=== PATIENT | female | born 2005 | race Caucasian/White ===

== ENCOUNTER 2024-05-04 15:57 | Emergency (ER) | payer OTHER, SELFPAY ==
[2024-05-04 15:59] VITALS: BP 149/104
--- NOTE | 2024-05-04 16:04 | ED.GENMED ---
ED Provider Triage
<DYLAN Lau - Last Filed: 05/04/24 16:17>
-
Patient seen by provider in Triage?: Seen in Triage
Attestation: A medical screening examination has been initiated by a qualified medical provider. Based on the assessment performed at this time, it has been determined that an emergent medical condition may exist and the patient has been informed
that further medical evaluation and possible additional diagnostic testing may be needed.
HPI:
19 yr old female presents with fever /body aches )since Wednesday as high as 103. STarted with RLQ pain last night and diarrhea. Pt has had 6 episodes between 12 pm and 3 pm and 6 episodes this am . Pt c/o of pain with jumping and walking up
the steps.
No UTI symptoms
GENERAL: Alert , in no apparent distress
EYE: No visual abnormalities.
NECK: Trachea midline
ENT: No visible abnormalities.
LUNGS: No acute respiratory distress
NEUROLOGICAL: Alert and oriented
SKIN: Skin intact. No visible changes.
MUSCULOSKELETAL: Moving extremities normally
PSYCH: Normal and appropriate interaction.
This is a medical evaluation conducted in person to initiate diagnostic evaluation and provide initial therapeutics. Please see further documentation by the treating clinician.
History of Present Illness
<DYLAN Lau - Last Filed: 05/04/24 16:17>
General
Chief Complaint: Abdominal Symptoms
Time Seen by Provider: 05/04/24 16:39
<Lisa Boggs MD - Last Filed: 05/04/24 19:56>
General
Source: patient
Exam Limitations: none
Nursing documentation reviewed up to this point in time: agreed with
History of Present Illness
History of Present Illness:
The patient is a 19-year-old female who reports 2 days of fevers and cold and frequent watery diarrhea. Patient also complains of right-sided abdominal pain. Patient was evaluated by her doctor and encouraged to go to the ED to rule out
appendicitis. Patient denies any past surgical history. She denies cough and sore throat. Patient reports she does not see any blood in her stool. No recent antibiotic use. No sick contacts or travel
Past History
<Lisa Boggs MD - Last Filed: 05/04/24 19:56>
Past History
ED Past Medical History: Asthma
ED Past Surgical History: None
Social History
Tobacco: Non-smoker
Alcohol: None
Drug: None
Personal: Single
Living: with family
Employment: Other
Family History
Family History: Other
Review of Systems
<Lisa Boggs MD - Last Filed: 05/04/24 19:56>
Review of Systems
Allergies reviewed?: Yes
All Other Systems: ROS reviewed and negative except as documented in HPI and ROS
Constitutional: Reports fever, fatigue and chills
EENT: Reports no symptoms
Respiratory: Reports no symptoms
Cardiac: Reports no symptoms
ABD/GI: Reports abdominal pain and diarrhea; Denies nausea or vomiting
: Reports no symptoms
Musculoskeletal: Reports no symptoms
Skin: Reports no symptoms
Neurological: Reports no symptoms
Endocrine: Reports no symptoms
Hematologic/Lymphatic: Reports no symptoms
Psychiatric: Reports no symptoms
Phy Exam
<Lisa Boggs MD - Last Filed: 05/04/24 19:56>
Physical Exam
Physical Exam:
Physical Exam
General: no apparent distress, slightly flushed but nontoxic
Neck: supple. no meningeal signs. normal psoterior pharynx
Heart: s1/s2 regular rate and rhythm, no murmur. equal radial pulses.
Lungs: no acute respiratory distress. clear bilaterally
Abdomen: Normal bowel sounds. Nondistended. Mild right upper and mid abdominal tenderness without rebound or guarding. No pulsatile mass
Neuro: alert and oriented. no focal neurological deficits
Skin: no rash
Psychiatric: well kept. interactive and cooperative
Extremities: no edema. no calf tenderness. negative homans. good distal pulses
Course
<DYLAN Lau - Last Filed: 05/04/24 16:17>
Orders/Labs/Results
Orders:
Orders
05/04/24 16:03
Test Result ONCE
05/04/24 16:06
Complete Blood Count/With Diff Urgent
Comprehensive Metabolic Panel Urgent
HCG, Serum Qualitative Screen Urgent
Lipase Urgent
05/04/24 16:16
CT Abd/pelvis W Iv Cont Urgent
Comment:
Reason For Exam: rlq pain
05/04/24 17:03
0.9% Sodium Chloride 1000 ml [Nss] 1,000 ml IV BOLUS
Acetaminophen [Tylenol] 1,000 mg PO NOW STA
Ketorolac [Toradol] 30 mg IV NOW STA
05/04/24 18:03
STOOL [C difficile Antigen & Toxins] Urgent
DORY Source: Feces/Stool
Specimen Description:
Date Specimen was Collected: 05/04/24
Time Specimen was Collected: 17:59
Stool Culture Urgent
DORY Source: Feces/Stool
Specimen Description:
Date Specimen was Collected: 05/04/24
Time Specimen was Collected: 17:59
05/04/24 19:31
Urinalysis Reflex To Culture Urgent
Date Specimen was Collected: 05/04/24
Time Specimen was Collected: 17:10
Urine Microscopic Reflex Cult Urgent
Abnormal Lab Results
05/04/24 05/04/24
16:06 19:31
MPV 11.0 H fL
(7.4-10.4)
Neutrophils % 79.5 H %
(42.2-75.2)
Lymphocytes % 14.8 L %
(20.5-51.1)
Urine Ketones 3+ A
(Negative)
Ur Occult Blood Reflex 4+ A
(Negative)
05/04/24 16:06
05/04/24 16:06
Vital Signs
Initial and Last Documented VS:
Initial Vital Signs
Temp Pulse Resp BP Pulse Ox
99.4 F 124 18 149/104 98
05/04/24 15:59 05/04/24 15:59 05/04/24 15:59 05/04/24 15:59 05/04/24 15:59
Last Documented Vital Signs
Temp Pulse Resp BP Pulse Ox
99.4 F 104 16 139/80 100
05/04/24 15:59 05/04/24 17:14 05/04/24 16:45 05/04/24 17:10 05/04/24 17:11
<Lisa Boggs MD - Last Filed: 05/04/24 19:56>
Orders/Labs/Results
Orders:
Orders
05/04/24 16:03
Test Result ONCE
05/04/24 16:06
Complete Blood Count/With Diff Urgent
Comprehensive Metabolic Panel Urgent
HCG, Serum Qualitative Screen Urgent
Lipase Urgent
05/04/24 16:16
CT Abd/pelvis W Iv Cont Urgent
Comment:
Reason For Exam: rlq pain
05/04/24 17:03
0.9% Sodium Chloride 1000 ml [Nss] 1,000 ml IV BOLUS
Acetaminophen [Tylenol] 1,000 mg PO NOW STA
Ketorolac [Toradol] 30 mg IV NOW STA
05/04/24 18:03
STOOL [C difficile Antigen & Toxins] Urgent
DORY Source: Feces/Stool
Specimen Description:
Date Specimen was Collected: 05/04/24
Time Specimen was Collected: 17:59
Stool Culture Urgent
DORY Source: Feces/Stool
Specimen Description:
Date Specimen was Collected: 05/04/24
Time Specimen was Collected: 17:59
05/04/24 19:31
Urinalysis Reflex To Culture Urgent
Date Specimen was Collected: 05/04/24
Time Specimen was Collected: 17:10
Urine Microscopic Reflex Cult Urgent
Abnormal Lab Results
05/04/24 05/04/24
16:06 19:31
MPV 11.0 H fL
(7.4-10.4)
Neutrophils % 79.5 H %
(42.2-75.2)
Lymphocytes % 14.8 L %
(20.5-51.1)
Urine Ketones 3+ A
(Negative)
Ur Occult Blood Reflex 4+ A
(Negative)
05/04/24 16:06
05/04/24 16:06
Vital Signs
Initial and Last Documented VS:
Initial Vital Signs
Temp Pulse Resp BP Pulse Ox
99.4 F 124 18 149/104 98
05/04/24 15:59 05/04/24 15:59 05/04/24 15:59 05/04/24 15:59 05/04/24 15:59
Last Documented Vital Signs
Temp Pulse Resp BP Pulse Ox
99.4 F 104 16 139/80 100
05/04/24 15:59 05/04/24 17:14 05/04/24 16:45 05/04/24 17:10 05/04/24 17:11
<Lisa Boggs MD - Last Filed: 05/04/24 19:56>
MDM/Problems Addressed
Differential Diagnosis Includes:
Acute colitis, acute appendicitis, acute cholecystitis, viral illness
MDM/Problems Addressed:
Patient presents with acute abdominal pain and diarrhea
<Lisa Boggs MD - Last Filed: 05/04/24 19:56>
*Radiology
Radiology exam reviewed: radiology read reviewed
*Pulse Oximetry
Patient hypoxic: no
*EKG
Interpreted by ED Provider?: NA
*Critical Care Note
Total Time (30-74mins, 75-104mins- exclusive of procedures): Not Applicable
<Lisa Boggs MD - Last Filed: 05/04/24 19:56>
Update Note
Update Note:
Patient feels so much better with Toradol and Tylenol. CAT scan shows no intra-abdominal infection or surgical issue. Patient likely has viral enteritis and will be encouraged to drink lots of fluids, and take Tylenol.
ED Attending Note
<DYLAN Lau - Last Filed: 05/04/24 16:17>
-
Portions of this chart may have been created with voice recognition software.� Occasional wrong word or��sound alike� substitutions may have occurred due to the inherent limitations of voice recognition software.
Discharge Plan
Departure
Patient Disposition: Home (Routine Discharge)
Date of Disposition: 05/04/24
Time of Disposition: 19:50
Patient with high blood pressure during this ER visit?: Yes
Condition: Good
Covid-19: Not Applicable
Discharge Problem:
Abdominal pain, acute, Acute diarrhea
Instructions: Diarrhea in teens and adults, [place] Diet, Abdominal Pain, BLOOD PRESSURE
Prescriptions:
New
ketorolac 10 mg tablet
10 mg PO TID PRN (Reason: Pain) Qty: 7 0RF
Rx Instructions:
maximum total duration of 5 days from all oral, intranasal, or parenteral formulations
No Action
ondansetron 4 MG tablet,disintegrating
4 mg PO TIDPRN PRN (Reason: nausea) Qty: 12 0RF
Referrals:
Jason Santamaria, DO [Family Provider] -
Activity Restrictions/Additional Instructions:
Take 1000 mg of Tylenol every 4-6 hours for fever and pain. In addition to Tylenol, you can also take the Toradol every 8 hours as needed for pain. Please do not combine the Toradol with any other NSAID such as Motrin, ibuprofen, Aleve or Advil
Please follow with your primary care doctor in 2 days if you are still not feeling better
Please continue to drink lots of fluids to keep yourself hydrated
Interventions
Interventions:
*Risk Screen - Suicide Last Done: 05/04/24 15:59
*General Assessment Last Done: 05/04/24 15:59
*Neglect/Abuse Screening Last Done: 05/04/24 16:41
*ED COVID-19 Vaccine History Last Done: 05/04/24 15:59
NT-Ryvdal-Nnmebjmfxh Assessment Last Done: 05/04/24 16:45
Discharge Date and Time
Print Language: [place]
[2024-05-04 16:12] LABS: % Basophils 0.4 % (0-2); % Eosinophils 0.1 % (0-6); % Immature Granulocytes 0.1 % (0-0.5); % Lymphocytes 14.8 % (20.5-51.1); % Monocytes 5.1 % (1.7-9.3); % Neutrophils 79.5 % (42.2-75.2); Absolute Lymphocytes 1.2 10^3/uL (1.2-3.4); Absolute Monocytes 0.4 10^3/uL (0.1-0.6); Absolute Neutrophils 6.3 10^3/uL (1.4-6.5); Hematocrit 40.1 % (37.0-47.0); Hemoglobin 13.4 g/dL (12.0-16.0); Mean Corp Hgb Conc. 33.4 g/dL (33.0-37.0); Mean Corpuscular Hgb 27.6 pg (27.0-31.0); Mean Corpuscular Volume 82.7 fL (81.0-99.0); Nucleated Red Blood Cells % 0 %; Platelet Count 260 10^3/uL (130-400); Red Blood Cell Count 4.85 10^6/uL (4.20-5.40); Red Cell Dist. Width 13.4 % (11.5-14.5); White Blood Cell Count 7.9 10^3/uL (4.8-10.8)
[2024-05-04 16:15] VITALS: BMI 27.1
[2024-05-04 16:31] LABS: HCG, Serum Qualitative Screen Negative
[2024-05-04 16:35] LABS: ALT (SGPT) 20 U/L (0-35); AST (SGOT) 29 U/L (14-36); Albumin 4.6 g/dl (3.5-5.0); Alkaline Phosphatase 74 U/L (38-126); Blood Urea Nitrogen 8 mg/dl (7-17); Calcium 9.7 mg/dl (8.4-10.2); Carbon Dioxide 22 mmol/L (22-30); Chloride 104 mmol/L (98-107); Estimated Creatinine Clearance 123 ml/min; Glucose 98 mg/dl (70-99); Lipase 73 U/L (23-300); Potassium 3.9 mmol/L (3.5-5.1); Sodium 139 mmol/L (135-145); Total Bilirubin 0.4 mg/dl (0.2-1.3); Total Protein 7.3 g/dl (6.3-8.2); eGFR > 60.00
[2024-05-04 16:41] VITALS: BMI 27.2
[2024-05-04] MEDS: TORADOL 30 MG IV (17:06)
[2024-05-04] MEDS: TYLENOL 1000 MG PO (17:06)
[2024-05-04] MEDS: NSS 1000 IV (17:08)
[2024-05-04 17:10] VITALS: BP 139/80
[2024-05-04 19:34] VITALS: BP 123/69
[2024-05-04 19:45] LABS: Urine Albumin Trace (Neg - Trace); Urine Bilirubin Negative (Negative); Urine Character Clear (Clear); Urine Color Yellow; Urine Glucose Negative (Negative); Urine Ketone 3+ (Negative); Urine Leukocyte Negative (Negative); Urine Nitrite Negative (Negative); Urine Occult Blood 4+ (Negative); Urine Urobilinogen Negative (Neg - 1+)
[2024-05-04 19:56] LABS: Urine Bacteria Few (Negative); Urine White Cell 0-2 /HPF (0-5)
[2024-05-04 20:13] VITALS: BP 125/75
== END 2024-05-04 20:36 | disposition home or self-care (01) ==
LOC: EMR 15:57
PROVIDERS: Nurse Practitioner; EMERGENCY PHYSICIAN Emergency Medicine; FAMILY PHYSICIAN Pediatrics
DX: R10.31 Right lower quadrant pain (principal); R19.7 Diarrhea, unspecified; J45.909 Unspecified asthma, uncomplicated
CPT/HCPCS: 99284; 96374; 96361; 74177; 80053; 81003; 81015; 83690; 84703; 85025; 87045; 87046; 87077; 87184; 87186; 87324; 87427; 87449; Q9967

== ENCOUNTER 2024-05-06 11:39 | Emergency (ER) | payer OTHER, SELFPAY ==
[2024-05-06 11:41] VITALS: BP 148/90
[2024-05-06 12:38] VITALS: BP 135/82
[2024-05-06 13:00] VITALS: BP 150/94
--- NOTE | 2024-05-06 13:36 | ED.GENMED ---
Addendum entered and electronically signed by DYLAN Lau 05/08/24 08:13:
Patient stool culture came back positive for Salmonella. Patient was seen here on May 06 and discharged on Cipro and Bactrim. Patient is susceptible to Bactrim on Salmonella culture results. Will have patient stop Cipro. I spoke with
patient and mother home who reports they did call the ER yesterday and stopped Cipro after the results were back. She is feeling better though she has still some diarrhea and cramping fever has resolved. Discussed close outpatient follow-up with
family doctor.
Will give patient additional note to return in 48 hours unless worsening of symptoms.
Original Note:
History of Present Illness
General
Chief Complaint: Abdominal Symptoms
Time Seen by Provider: 05/06/24 12:36
History of Present Illness
History of Present Illness:
Patient is a 19-year-old female who is otherwise healthy presents to the emergency department with persistent nausea vomiting diarrhea and fever. She was seen in the emergency department 2 days ago diagnosed with likely gastroenteritis. She had a
negative CT scan done at that. Stool studies were negative for C. difficile, are still pending other stool cultures. She reports persistent symptoms. Denies focal abdominal pain. Endorses small amount of blood in her diarrhea. Patient denies
recent travel. Patient denies animal exposure. 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
Past History
Past History
ED Past Medical History: Asthma
ED Past Surgical History: None
Social History
Tobacco: Non-smoker
Alcohol: None
Drug: None
Personal: Single
Living: with family
Employment: Other
Family History
Family History: Other
Phy Exam
Physical Exam
Physical Exam:
GENERAL APPEARANCE: NAD, well developed/ well nourished
EYES lids/conjunctiva normal
EARS/NOSE/THROAT Mucous membranes moist, uvula midline without oral pharyngeal erythema, exudate or swelling
HEAD/NECK normocephalic atraumatic, neck is supple.
RESPIRATORY respiratory effort normal, speaks in full sentences, no accessory muscle use. Lungs clear to auscultation without rhonchi, wheezes, rales
CARDIAC Regular rate and rhythm, no edema.
ABDOMINAL soft, no distention. Mildly tender diffusely. No peritoneal signs
MUSCLES/EXTREMITIES No abnormal range of motion, no swelling.
SKIN Warm, pink and dry. No rashes
NEUROLOGICAL Speech is clear and appropriate. Normal level of consciousness. 5/5 strength in all extremities.
PSYCH Normal mood and affect. Judgement/competence is appropriate
Course
Orders/Labs/Results
Orders:
Orders
05/06/24 13:32
0.9% Sodium Chloride 1000 ml [Nss] 1,000 ml IV BOLUS
Ketorolac [Toradol] 15 mg IV NOW STA
Ondansetron Injectable [Zofran] 4 mg IV NOW STA
Test Result ONCE
05/06/24 14:01
Complete Blood Count/With Diff Urgent
05/06/24 14:02
CRP [C-Reactive Protein] Urgent
Comprehensive Metabolic Panel Urgent
HCG, Serum Qualitative Screen Urgent
Blood Culture Routine
DORY Source: Blood/Venous
Specimen Description:
Blood Culture Urgent
DORY Source: Blood/Venous
Specimen Description:
05/06/24 14:52
Ova & Parasites Giardia/Crypto AG [Giardia/Cryptosporidium Ag] Urgent
DORY Source: Feces/Stool
Specimen Description:
Date Specimen was Collected: 05/06/24
Time Specimen was Collected: 14:50
05/06/24 16:53
Ciprofloxacin HCl [Cipro] 500 mg PO ONCE ONE
Abnormal Lab Results
05/06/24 05/06/24
14:01 14:02
WBC 4.4 L 10^3/uL
(4.8-10.8)
Hct 36.1 L %
(37.0-47.0)
MCV 80.4 L fL
(81.0-99.0)
MCH 26.9 L pg
(27.0-31.0)
MPV 10.7 H fL
(7.4-10.4)
Absolute Lymphs (auto) 0.8 L 10^3/uL
(1.2-3.4)
Lymphocytes % 18.9 L %
(20.5-51.1)
Carbon Dioxide 19 L mmol/L
(22-30)
C-Reactive Protein 58.90 H mg/L
(0.0-10.00)
05/06/24 14:01
05/06/24 14:02
Vital Signs
Initial and Last Documented VS:
Initial Vital Signs
Temp Pulse Resp BP Pulse Ox
99.2 F 109 18 148/90 100
05/06/24 11:41 05/06/24 11:41 05/06/24 11:41 05/06/24 11:41 05/06/24 11:41
Last Documented Vital Signs
Temp Pulse Resp BP Pulse Ox
99.2 F 109 18 143/78 98
05/06/24 11:41 05/06/24 11:41 05/06/24 11:41 05/06/24 14:00 05/06/24 16:30
*Critical Care Note
Total Time (30-74mins, 75-104mins- exclusive of procedures): Not Applicable
ED Attending Note
ED Attending Note
ED Attending Note:
Patient with persistent fevers with diarrhea. She is afebrile here and nontoxic-appearing she has a benign abdominal exam. Elevated inflammatory markers on lab work. Do not feel there is an indication for repeat CT scanning at this time. Stool
cultures are still pending. Given her fevers and severe symptoms, will start empiric antibiotics for infectious diarrhea. Considered admission, but patient tolerating PO, and is well appearing.
-
Portions of this chart may have been created with voice recognition software.� Occasional wrong word or��sound alike� substitutions may have occurred due to the inherent limitations of voice recognition software.
Discharge Plan
Departure
Patient Disposition: Home (Routine Discharge)
Date of Disposition: 05/06/24
Time of Disposition: 16:43
Patient with high blood pressure during this ER visit?: No
Discharge Problem:
Acute infectious diarrhea
Instructions: [place] Diet, Acute Diarrhea
Prescriptions:
New
ciprofloxacin HCl 500 mg tablet
500 mg PO BID Qty: 8 0RF
sulfamethoxazole-trimethoprim [Bactrim DS] 800-160 mg tablet
1 tab PO BID 10 Days Qty: 20 0RF
No Action
ondansetron 4 MG tablet,disintegrating
4 mg PO TIDPRN PRN (Reason: nausea) Qty: 12 0RF
ketorolac 10 mg tablet
10 mg PO TID PRN (Reason: Pain) Qty: 7 0RF
Rx Instructions:
maximum total duration of 5 days from all oral, intranasal, or parenteral formulations
Referrals:
Jason Santamaria, [Family Provider] -
Stand Alone Forms: Return to Work
Activity Restrictions/Additional Instructions:
Please follow up with your primary doctor for recheck in the next few days
return to ER if worse
Interventions
Interventions:
*Risk Screen - Suicide Last Done: 05/06/24 14:02
*General Assessment Last Done: 05/06/24 14:02
*Neglect/Abuse Screening Last Done: 05/06/24 14:02
ED- Fall Risk Assessment Last Done: 05/06/24 14:02
*ED COVID-19 Vaccine History Last Done: 05/06/24 14:02
*Nursing Disposition Last Done: 05/06/24 17:03
VX-Glxzhx-Qdekvrmsvd Assessment Last Done: 05/06/24 14:02
Discharge Date and Time
Discharge Date/Time: 05/06/24 17:20
Print Language: PALAU[place]
[2024-05-06 14:00] VITALS: BP 143/78
[2024-05-06 14:02] VITALS: BMI 27.3
[2024-05-06 14:13] LABS: % Basophils 0.7 % (0-2); % Eosinophils 0.2 % (0-6); % Immature Granulocytes 0.2 % (0-0.5); % Lymphocytes 18.9 % (20.5-51.1); % Monocytes 9.3 % (1.7-9.3); % Neutrophils 70.7 % (42.2-75.2); Absolute Lymphocytes 0.8 10^3/uL (1.2-3.4); Absolute Monocytes 0.4 10^3/uL (0.1-0.6); Absolute Neutrophils 3.1 10^3/uL (1.4-6.5); Hematocrit 36.1 % (37.0-47.0); Hemoglobin 12.1 g/dL (12.0-16.0); Mean Corp Hgb Conc. 33.5 g/dL (33.0-37.0); Mean Corpuscular Hgb 26.9 pg (27.0-31.0); Mean Corpuscular Volume 80.4 fL (81.0-99.0); Mean Platelet Volume 10.7 fL (7.4-10.4); Nucleated Red Blood Cells % 0 %; Platelet Count 237 10^3/uL (130-400); Red Blood Cell Count 4.49 10^6/uL (4.20-5.40); Red Cell Dist. Width 13.4 % (11.5-14.5); White Blood Cell Count 4.4 10^3/uL (4.8-10.8)
[2024-05-06 14:39] LABS: ALT (SGPT) 20 U/L (0-35); AST (SGOT) 27 U/L (14-36); Albumin 4.2 g/dl (3.5-5.0); Alkaline Phosphatase 65 U/L (38-126); Blood Urea Nitrogen 9 mg/dl (7-17); Calcium 9.1 mg/dl (8.4-10.2); Carbon Dioxide 19 mmol/L (22-30); Chloride 106 mmol/L (98-107); Estimated Creatinine Clearance 108 ml/min; Glucose 83 mg/dl (70-99); Potassium 4.1 mmol/L (3.5-5.1); Sodium 143 mmol/L (135-145); Total Bilirubin 0.3 mg/dl (0.2-1.3); Total Protein 6.9 g/dl (6.3-8.2); eGFR > 60.00
[2024-05-06 14:44] LABS: HCG, Serum Qualitative Screen Negative
[2024-05-06] MEDS: ZOFRAN 4 MG IV (14:44)
[2024-05-06] MEDS: NSS 1000 IV (14:45)
[2024-05-06] MEDS: TORADOL 15 MG IV (14:45)
[2024-05-06] MEDS: CIPRO 500 MG PO (16:59)
== END 2024-05-06 17:20 | disposition home or self-care (01) ==
LOC: EMR 11:39
PROVIDERS: EMERGENCY PHYSICIAN Emergency Medicine; FAMILY PHYSICIAN Pediatrics
DX: A09 Infectious gastroenteritis and colitis, unspecified (principal); J45.909 Unspecified asthma, uncomplicated
CPT/HCPCS: 99283; 96374; 96375; 80053; 84703; 85025; 86140; 87040; 87328; 87329

== ENCOUNTER 2024-11-26 13:36 | Emergency (ER) | payer OTHER, SELFPAY ==
[2024-11-26 13:44] VITALS: BP 143/108
--- NOTE | 2024-11-26 14:59 | ED.GENMED ---
History of Present Illness
General
Chief Complaint: Abdominal Symptoms
Source: patient and family (Mom)
Exam Limitations: none
Time Seen by Provider: 11/26/24 14:40
History of Present Illness
History of Present Illness:
19-year-old female complaining of abdominal pain watery diarrhea. No blood or mucus. Started days ago. Currently on Zofran at home with some improvement. Feels lightheaded however. No fever. No recent antibiotics no travel history. No one
else is ill at home.
Past History
Past History
ED Past Medical History: Asthma
ED Past Surgical History: None
Social History
Tobacco: Non-smoker
Alcohol: None
Drug: None
Personal: Single
Living: with family
Employment: Other
Family History
Family History: Other
Review of Systems
Review of Systems
All Other Systems: Not applicable
ABD/GI: Denies bloody stools or black stools
: Reports no symptoms
Phy Exam
Physical Exam
Physical Exam:
GENERAL: Alert and oriented in no apparent distress
EYE: Orbits normal.
NECK: Supple
CARDIAC: Regular rate and rhythm without any obvious murmurs.
LUNGS: Clear breath sounds,normal
ABDOMEN: Soft, minimal epigastric tenderness. No rebound or guarding no mass or focal severe tenderness
NEUROLOGICAL: Alert and oriented , grossly non-focal
SKIN: Warm and dry, no rash or lesion, no discoloration, skin intact.
MUSCULOSKELETAL: No edema,no deformity.Good color
PSYCH: Normal and appropriate interaction.
Course
Orders/Labs/Results
Orders:
Orders
11/26/24 14:55
CT Abd/pel W Iv And Oral Contr Urgent
Comment:
Reason For Exam: Abdominal pain/diarrhea
IV Insert/Care/Rem.- Treatment PRN
STOOL [C difficile Antigen & Toxins] Urgent
DORY Source: Feces/Stool
Specimen Description:
Date Specimen was Collected: 11/26/24
Time Specimen was Collected: 16:38
Stool Culture Urgent
DORY Source: Feces/Stool
Specimen Description:
Date Specimen was Collected: 11/26/24
Time Specimen was Collected: 16:38
0.9% Sodium Chloride 1000 ml [Nss] 1,000 ml IV BOLUS
Iohexol [Omnipaque] See Protocol PO NOW STA
Test Result ONCE
11/26/24 15:23
Complete Blood Count/With Diff Urgent
Comprehensive Metabolic Panel Urgent
HCG, Serum Qualitative Screen Urgent
Lipase Urgent
11/26/24 17:03
0.9% Sodium Chloride 1000 ml [Nss] 1,000 ml IV BOLUS
Abnormal Lab Results
11/26/24
15:23
RBC 5.81 H 10^6/uL
(4.20-5.40)
MCV 77.6 L fL
(81.0-99.0)
MCH 26.9 L pg
(27.0-31.0)
MPV 11.3 H fL
(7.4-10.4)
Absolute Lymphs (auto) 0.9 L 10^3/uL
(1.2-3.4)
Absolute Monos (auto) 0.8 H 10^3/uL
(0.1-0.6)
Lymphocytes % 14.4 L %
(20.5-51.1)
Monocytes % 12.4 H %
(1.7-9.3)
Carbon Dioxide 19 L mmol/L
(22-30)
BUN 18 H mg/dl
(7-17)
Creatinine 1.1 H mg/dL
(0.6-1.0)
AST 40 H U/L
(14-36)
Total Protein 9.3 H g/dl
(6.3-8.2)
Albumin 5.2 H g/dl
(3.5-5.0)
11/26/24 15:23
11/26/24 15:23
Vital Signs
Initial and Last Documented VS:
Initial Vital Signs
Temp Pulse Resp BP Pulse Ox
98.0 F 123 18 143/108 99
11/26/24 13:44 11/26/24 13:44 11/26/24 13:44 11/26/24 13:44 11/26/24 13:44
Last Documented Vital Signs
Temp Pulse Resp BP Pulse Ox
98.2 F 103 18 129/94 100
11/26/24 15:16 11/26/24 15:18 11/26/24 15:18 11/26/24 15:18 11/26/24 15:18
MDM/Problems Addressed
Differential Diagnosis Includes:
Symptom complex all consistent with colitis. Doubt surgical abdomen. Labs stool culture fluids CT scan to assess severity.
*Radiology
Radiology exam reviewed: radiology read reviewed (Negative CT)
*Pulse Oximetry
Patient hypoxic: no
*Critical Care Note
Total Time (30-74mins, 75-104mins- exclusive of procedures): Not Applicable
Data Reviewed
Review of Other/Old Records Reveals: Labs, Records and Testing
Update Note
Update Note:
Symptoms consistent with colitis. Medically stable. Discharged to follow-up
ED Attending Note
-
Portions of this chart may have been created with voice recognition software.� Occasional wrong word or��sound alike� substitutions may have occurred due to the inherent limitations of voice recognition software.
Discharge Plan
Departure
Patient Disposition: Home (Routine Discharge)
Date of Disposition: 11/26/24
Time of Disposition: 18:09
Patient with high blood pressure during this ER visit?: Yes
Discharge Problem:
Colitis
Instructions: Diarrhea in teens and adults, Colitis - Discharge instructions, BLOOD PRESSURE
Prescriptions:
New
ondansetron 4 mg tablet,disintegrating
4 mg PO TIDPRN PRN (Reason: nausea/vomiting) Qty: 14 0RF
No Action
ondansetron 4 MG tablet,disintegrating
4 mg PO TIDPRN PRN (Reason: nausea) Qty: 12 0RF
ketorolac 10 mg tablet
10 mg PO TID PRN (Reason: Pain) Qty: 7 0RF
Rx Instructions:
maximum total duration of 5 days from all oral, intranasal, or parenteral formulations
ciprofloxacin HCl 500 mg tablet
500 mg PO BID Qty: 8 0RF
sulfamethoxazole-trimethoprim [Bactrim DS] 800-160 mg tablet
1 tab PO BID 10 Days Qty: 20 0RF
Referrals:
Jason Santamaria, DO [Family Provider] - Follow up in 2-3 days
Activity Restrictions/Additional Instructions:
Stool culture should be back in 2 to 3 days
Interventions
Interventions:
*Risk Screen - Suicide Last Done: 11/26/24 13:44
*General Assessment Last Done: 11/26/24 13:44
*Neglect/Abuse Screening Last Done: 11/26/24 13:44
*ED- Fall Risk Assessment Last Done: 11/26/24 15:19
*ED COVID-19 Vaccine History Last Done: 11/26/24 15:19
Discharge Date and Time
Print Language: ICELANDIC
[2024-11-26 15:14] VITALS: BMI 26.2
[2024-11-26] MEDS: OMNIPAQUE 50 ML PO (15:17)
[2024-11-26 15:18] VITALS: BP 129/94
[2024-11-26] MEDS: NSS 1000 IV ×2 (15:25→17:46)
[2024-11-26 15:31] LABS: % Basophils 0.5 % (0-2); % Eosinophils 0.2 % (0-6); % Immature Granulocytes 0.2 % (0-0.5); % Lymphocytes 14.4 % (20.5-51.1); % Monocytes 12.4 % (1.7-9.3); % Neutrophils 72.3 % (42.2-75.2); Absolute Lymphocytes 0.9 10^3/uL (1.2-3.4); Absolute Monocytes 0.8 10^3/uL (0.1-0.6); Absolute Neutrophils 4.6 10^3/uL (1.4-6.5); Hematocrit 45.1 % (37.0-47.0); Hemoglobin 15.6 g/dL (12.0-16.0); Mean Corp Hgb Conc. 34.6 g/dL (33.0-37.0); Mean Corpuscular Hgb 26.9 pg (27.0-31.0); Mean Corpuscular Volume 77.6 fL (81.0-99.0); Mean Platelet Volume 11.3 fL (7.4-10.4); Nucleated Red Blood Cells % 0 %; Platelet Count 280 10^3/uL (130-400); Red Blood Cell Count 5.81 10^6/uL (4.20-5.40); Red Cell Dist. Width 13.2 % (11.5-14.5); White Blood Cell Count 6.4 10^3/uL (4.8-10.8)
[2024-11-26 15:40] LABS: HCG, Serum Qualitative Screen Negative
[2024-11-26 15:43] LABS: ALT (SGPT) 30 U/L (0-35); AST (SGOT) 40 U/L (14-36); Albumin 5.2 g/dl (3.5-5.0); Alkaline Phosphatase 80 U/L (38-126); Blood Urea Nitrogen 18 mg/dl (7-17); Calcium 9.8 mg/dl (8.4-10.2); Carbon Dioxide 19 mmol/L (22-30); Chloride 101 mmol/L (98-107); Estimated Creatinine Clearance 73 ml/min; Glucose 89 mg/dl (70-99); Lipase 80 U/L (23-300); Potassium 3.9 mmol/L (3.5-5.1); Sodium 137 mmol/L (135-145); Total Bilirubin 0.7 mg/dl (0.2-1.3); Total Protein 9.3 g/dl (6.3-8.2); eGFR > 60.00
[2024-11-26 18:44] VITALS: BP 148/87
== END 2024-11-26 19:04 | disposition home or self-care (01) ==
LOC: EMR 13:36
PROVIDERS: EMERGENCY PHYSICIAN Emergency Medicine; FAMILY PHYSICIAN Pediatrics
DX: K52.9 Noninfective gastroenteritis and colitis, unspecified (principal); J45.909 Unspecified asthma, uncomplicated
CPT/HCPCS: 96360; 96361; 99284; 74177; 80053; 83690; 84703; 85025; 87045; 87046; 87324; 87427; 87449; Q9967